=== PATIENT | female | born 2000 | race African-American/Black ===

== ENCOUNTER 2025-03-16 11:42 | Outpatient (RCR) | payer OTHER, SELFPAY ==
[2025-03-14 16:27] LABS: Beta HCG Quantitative 45.81 mIU/ML
[2025-03-15] MEDS: RHO(D) IMMUNE GLOBULIN 300 MCG/2 ML SYRINGE IM (15:32)
[2025-03-16 12:39] LABS: Beta HCG Quantitative 23.05 mIU/ML
== END 2025-06-12 23:59 | disposition home or self-care (01) ==
LOC: ANHLAB 11:42
PROVIDERS: Visit Provider Obstetrics & Gynecology
DX: Z29.13 Encounter for prophylactic Rho(D) immune globulin (principal); O20.0 Threatened abortion; O36.0190 Maternal care for anti-D [Rh] antibodies, unspecified trimester, not applicable or unspecified; Z3A.00 Weeks of gestation of pregnancy not specified
CPT/HCPCS: 36415; 84702; 85461; 86850; 86900; 86901; 90384; 96372; J2790